=== PATIENT | female | born 1975 | race Caucasian/White ===

== ENCOUNTER 2025-03-01 11:44 | Emergency (ER) | payer OTHER, SELFPAY ==
[2025-03-01 11:44] VITALS: BP 182/87; PULSE 105; RESP 16; TEMP 36.8; O2SAT 100
--- NOTE | 2025-03-01 12:13 | ED.VIS.LOWEX ---
HPI History of Present Illness Chief Complaint: Lower Extremity Injury Narrative Narrative: 50-year-old female had surgery by Dr. Panchito Johnson a few months ago, arthroscopic for microfracture and meniscal tear presents with pain in her left posterior ankle that she sustained while walking across a carpeted floor yesterday afternoon around 1 PM, almost 24 hours ago. She denies any fall but states that she was simply walking and felt a pop/heard a pop in her left posterior ankle. She is now unable to weight-bear on it. She is able to plantar flex and dorsiflex her left foot, but is more comfortable for her to keep her foot plantarflexed. She states that she called her orthopedic surgeon, and although he is at the hospital and surgery, she needed to come to the emergency department for evaluation and probable splinting as it was felt he could not wait to be seen in the office. She denies other injuries. PFSH PFS Medical History no medical history Home Medications ?Medication ?Instructions ?Recorded ?Last Taken ?Type NK 03/01/25 Unknown History Allergy/AdvReac Type Severity Reaction Status Date / Time No Known Allergies Allergy Verified 03/01/25 11:46 Social History Smoking Status: Never smoker ROS ROS ED ROS Narrative Review of systems is positive for left posterior ankle pain. Unable to bear weight. No other injury. Injury happened at 1 PM yesterday. More comfortable to keep left foot plantarflexed. EXAM Physical Exam Narrative Exam Narrative: GCS 15. ABCs intact. Focused examination of the left lower extremity reveals mild tenderness to palpation along the proximal Achilles tendon. No noted ecchymosis. Palpable dorsalis pedis pulse. Foot held in plantarflexion. Positive Cullen test. Const Vital Signs: 03/01/25 11:44 Temperature 98.2 F Temperature Source Oral Pulse Rate 105 H Respiratory Rate 16 Blood Pressure 182/87 H Blood Pressure Mean 118 Pulse Ox 100 Oxygen Delivery Method Room Air MDM MDM MDM Narrative Medical decision making narrative: Differential diagnosis includes but not limited to plantaris tendon rupture versus Achilles tendon rupture either partial or complete versus muscle strain. I have low suspicion for any bony pathology or fracture. X-rays were obtained of the left ankle and 3 views and interpreted by myself independently as no evidence of acute fracture. Patient was offered analgesia here in the emergency department but she states she has analgesics leftover from her surgery. She would not like anything here. She also has a walker which she has been using to help her ambulate. Patient was discussed with orthopedics on-call for Dr. Johnson, Dr. Law. Patient will be placed in a posterior splint in equine position. Dr. Johnson had returned the call regarding his patient. The patient is not on any antibiotics or steroids that would have caused an acute tendon rupture. I received a call from the radiologist as well who states that there was concern for minimally displaced fracture on the anterior process of the calcaneus and he suggested a CT of the left ankle. I reviewed the radiology report of the CT of the left ankle and there is no acute fracture, but rather a bone island with benign characteristics. In discussion with orthopedics, Dr. Johnson, he is stated to put her in a posterior splint in a position of comfort and follow-up tomorrow as scheduled. She was placed in a posterior Ortho-Glass splint and more of an equine position. She has her walker and pain medications at home. She will elevate her left lower extremity when possible. Follow-up with orthopedics tomorrow. Disposition is discharged home in stable condition. History & Record Review Discussion w/independent historian: Patient Radiography X-Ray: Read by ED Physician, Read by Radiologist and No Fracture Diagnostic Testing: Clinical Impression(s) from Imaging Studies Ankle X-Ray 03/01/25 12:20 IMPRESSION: There is cortical irregularity of the anterior process of the calcaneus on the lateral view, likely minimally displaced fracture. Critical results were discussed with Dr. Osorio by Dr. Yoo at the time of dictation. Reading Location: [facility] Lower Extremity CT 03/01/25 13:50 IMPRESSION: No acute fracture or dislocation is identified. Reading Location: [facility] Management Discussion w/another healthcare provider: Putty Remover (Orthopedics, Dr. Johnson) Procedures Lower Extremity Splints Lower Extremity Splint: Orthoglass and - (Posterior lower extremity splint in position of comfort/more equine) Splint Fabrication: Fabricated Location: Left Discharge Plan Triage Chief Complaint: Lower Extremity Injury ED Provider: Donovan Osorio Dx/Rx/DC Orders Clinical Impression: Achilles tendon rupture, Ankle pain, left Instructions: ED Tendon Rupture Achilles, ED Pain, Acute, Uncertain Cause Prescriptions: No Action NK Primary Care Provider: Care Physician,No Primary Referrals: Parisa Urban MD [Med Staff - Professional Organizer, Family Practice] Panchito Johnson MD [Med Staff - Active Staff, Orthopedics] - 1 Day Activity Restrictions/Additional Instructions: Nonweightbearing on your left ankle. Use your walker. Follow-up with Dr. Johnson tomorrow as scheduled. Continue your pain medications at home. Elevate your left leg when possible. Print Language: [place] Disposition Disposition: Home, Self Care
--- NOTE | 2025-03-01 12:20 | RAD_ITS ---
PROCEDURE: ANKLE MIN 3 VIEWS 03/01/2025 REASON FOR EXAM: TRAUMA, PAIN, TECHNIQUE: Procedure Code: RADANK Modality: DX Procedure: ANKLE MIN 3 VIEWS Three views of the left ankle COMPARISON: None FINDINGS: There is cortical irregularity of the anterior process of the calcaneus on the lateral view, likely minimally displaced fracture. The ankle mortise is not widened. The tibiotalar articulation appears intact. There is no focal soft tissue swelling identified. The Achilles shadow appears intact. RAD/Ankle min 3 Views IMPRESSION: There is cortical irregularity of the anterior process of the calcaneus on the lateral view, likely minimally displaced fracture. Critical results were discussed with Dr. Osorio by Dr. Yoo at the time of dictation. Reading Location: [facility]
--- NOTE | 2025-03-01 13:50 | CT_ITS ---
PROCEDURE: EXTREMITY LOWER WITHOUT CONTRA 03/01/2025 REASON FOR EXAM: PAIN TECHNIQUE: Procedure Code: CTELWO Modality: CT Procedure: EXTREMITY LOWER WITHOUT CONTRA Coronal and Sagittal reconstruction series were provided. CONTRAST: None One or more dose reduction techniques were used (e.g., Automated exposure control, adjustment of the mA and/or kV according to patient size, use of iterative reconstruction technique). RADIATION DOSE SUMMARY: Not reported COMPARISON: None FINDINGS: There is no acute fracture or dislocation identified. There is a 0.38 by 0.25 cm bone island in the anterior calcaneus with benign features. There is a 0.22 cm corticated osteochondral fragment at the posterior margin of the posterior subtalar joint. The talar dome and distal tibial articular surfaces are maintained. There is no erosive disease. The Achilles shadow and plantar fascia origins appear intact. There is no focal soft tissue abnormality or radiopaque foreign body. The Lisfranc articulation is aligned. There is no visible muscular atrophy. CT/Extremity Lower without Contra IMPRESSION: No acute fracture or dislocation is identified. Reading Location: [facility]
[2025-03-01 14:29] VITALS: BP 140/105; PULSE 85; RESP 18; TEMP 37.1; O2SAT 100
== END 2025-03-01 14:33 | disposition home or self-care (01) ==
PROVIDERS: Emergency Provider Emergency Medicine; Visit Provider Emergency Medicine
DX: S86.012A Strain of left Achilles tendon, initial encounter (principal); X58.XXXA Exposure to other specified factors, initial encounter; Y93.01 Activity, walking, marching and hiking
CPT/HCPCS: 29515; 73610; 73700; 99282